=== PATIENT | male | born 1930 | race Caucasian/White ===

== ENCOUNTER 2018-04-07 12:18 | Observation (INO) ==
[2018-04-07] MEDS ORDERED: 0.9 % Sodium Chloride 1,000 ML IVC ONE (13:28)
--- NOTE | 2018-04-07 13:31 | Emergency Department Note ---
Disposition Clinical Impression: Near syncope Disposition: Admitted As Inpatient Condition: Fair General Adult HPI - General Chief complaint: ED General Medical Stated complaint: "low blood pressure" Time Seen by Provider: 04/07/18 12:50 Source: patient Limitations: no limitations Nursing Notes Reviewed: Yes Vital Signs Reviewed: Yes - History of Present Illness HPI Narrative: 87-year-old male past history of hypertension and hyperlipidemia presents to the emergency department with concern for low blood pressure. Patient states that over the last few weeks, patient's first reported spells of standing up and getting very dizzy and having to sit down. Patient denies any loss of consciousness. Patient denies hitting his head. Patient was recently on metoprolol and losartan. His losartan was cut in half as there was concern that this before causing his symptoms. Patient stated that he is not taking any of his medications today and still had these episodes. Had a blood pressure as low as 77/41 with the symptoms. Patient states it was a cyst down and rest, they go away. Patient states that he has been drinking plenty of fluids. Pain Scale: 5 - Related Data Home Medications Medication Instructions Recorded Confirmed Atorvastatin [Lipitor] 40 mg PO HS 04/07/18 04/07/18 Glimepiride [Amaryl] 4 mg PO DAILY 04/07/18 04/07/18 Losartan Potassium [Cozaar] 50 mg PO DAILY 04/07/18 04/07/18 Metoprolol Succinate [Toprol Xl] 50 mg PO DAILY 04/07/18 04/07/18 Oxybutynin Chloride [Ditropan Xl] 10 mg PO DAILY 04/07/18 04/07/18 Allergies Allergy/AdvReac Type Severity Reaction Status Date / Time Penicillins Allergy Rash Verified 04/07/18 14:31 All systems ED: reviewed and negative except as stated. Review of Systems: As Per HPI Constitutional: Denies: fever Cardiovascular: Denies: chest pain, palpitations Respiratory: Denies: cough, dyspnea Gastrointestinal: Denies: abdominal pain, nausea, vomiting Genitourinary: Denies: urgency, dysuria, frequency Musculoskeletal: Denies: back pain Neurological: Reports: vertigo. Denies: headache, weakness, numbness, paresthesias, confusion Endocrine: Denies: fatigue Past Medical History - Past Medical History Medical history: Reports: diabetes, hyperlipidemia, hypertension Psychiatric history: Reports: no psych history - Social History Smoking Status: Former smoker Smokeless Tobacco Status: Yes Alcohol use: Reports: rarely Drug use: Reports: none Physical Exam - General Limitations: no limitations General appearance: alert - Head Head exam: atraumatic, normocephalic - Eye Eye exam: Present: EOMI. Absent: scleral icterus, conjunctival injection - ENT ENT exam: normal exam, normal oropharynx - Neck Neck exam: Present: full ROM, trachea midline - Chest Chest inspection: Present: normal inspection, symmetric chest wall rise - Respiratory Respiratory exam: Present: normal lung sounds bilaterally. Absent: respiratory distress - Cardiovascular Cardiovascular exam: Present: regular rate, normal rhythm, normal heart sounds - Abdominal Exam Abdominal exam: Present: soft, Non-Tender. Absent: distention, guarding, rebound, rigidity Course Vital Signs Temperature 98.2 F 04/07/18 12:25 Pulse Rate 74 04/07/18 12:25 Respiratory Rate 18 04/07/18 12:25 Blood Pressure 113/70 04/07/18 12:25 O2 Sat by Pulse Oximetry 94 04/07/18 12:25 Temperature 98.8 F 04/08/18 06:31 Pulse Rate 78 04/08/18 06:31 Respiratory Rate 15 04/08/18 06:31 Blood Pressure 128/76 04/08/18 06:31 O2 Sat by Pulse Oximetry 93 04/08/18 06:31 Oxygen Delivery Oxygen Delivery Room Air Medical Decision Making - [facility] Narrative Medical decision making narrative: 87-year-old male presents emergency department with concern for having episodes of what sounds like orthostatic hypotension. Is concerned however, it just started abruptly a few weeks ago and patient is an 87-year-old male. Medication reduction has been attempted by primary care, with no resolution of symptoms. Chest x-ray did not reveal any evidence of abnormality. Head CT revealed chronic microvascular ischemic changes. Labs were all within normal limits. Patient was given a liter fluid here in the emergency department. This did brace his systolic blood pressure to the 140s. He was not hypotensive here. EKG revealed left ventricular hypertrophy, but no signs of arrhythmia, Yuimv-Snqzlupib-Qnznq syndrome, Brugada syndrome, hypertrophic cardiomyopathy, prolonged QT syndrome. He was not anemic. Had negative troponin. TSH is within normal limits. Renal function was normal as well. I spoke with patient at bedside regarding need for possible admission for further workup for TIA. Patient agreed. Spoke with the hospitalist who agreed to accept the patient as well. Vital Signs Temperature 98.2 F 04/07/18 12:25 Pulse Rate 74 04/07/18 12:25 Respiratory Rate 18 04/07/18 12:25 Blood Pressure 113/70 04/07/18 12:25 O2 Sat by Pulse Oximetry 94 04/07/18 12:25 Temperature 98.8 F 04/08/18 06:31 Pulse Rate 78 04/08/18 06:31 Respiratory Rate 15 04/08/18 06:31 Blood Pressure 128/76 04/08/18 06:31 O2 Sat by Pulse Oximetry 93 04/08/18 06:31 Oxygen Delivery Oxygen Delivery Room Air Chest X-Ray 04/07/18 13:28 IMPRESSION: Bibasilar hypoaeration. Otherwise, unremarkable appearing chest D/ / Lv Peralta MD / Lv Peralta MD Interpreting Provider: Lv Peralta MD Head CT 04/07/18 13:28 IMPRESSION: No acute intracranial abnormality. Generalized age-appropriate atrophy with periventricular and deep white matter patchy areas of low attenuation suggestive of chronic microvascular ischemic change. D/ / Brenden Lee MD / Brenden Lee MD Interpreting Provider: Brenden Lee MD - Lab Data Result diagrams: 04/07/18 13:28 04/07/18 13:28 Lab Results 04/07/18 04/07/18 04/07/18 Range/Units 13:28 13:28 14:06 WBC 6.4 (4.3-11.1) K/mcL RBC 4.60 (4.19-5.50) M/mcL Hgb 14.4 (12.9-16.9) g/dL Hct 42.1 (37.5-50.1) % MCV 91.5 (83.0-100.0) fL MCH 31.3 (28.0-33.3) pg MCHC 34.2 (31.6-35.5) g/dL RDW 13.5 (11.5-14.5) % Plt Count 179 (140-400) K/mcL MPV 11.3 (9.4-12.4) fL Immature Gran % 0.3 (0-4) % Seg Neutrophils % 63.1 % Lymphocytes % 21.1 % Monocytes % 11.6 % Eosinophils % 3.6 % Basophils % 0.3 % Neutrophils # 4.1 (1.6-8.9) K/mcL Lymphocytes # 1.4 (0.6-4.6) K/mcL Monocytes # 0.8 (0.0-1.3) K/mcL Eosinophils # 0.2 (0.0-0.6) K/mcL Basophils # 0.0 (0.0-0.2) K/mcL Sodium 137 (136-145) mEq/L Potassium 4.1 (3.5-5.1) mEq/L Chloride 104 (98-107) mEq/L Carbon Dioxide 27 (23-29) mEq/L BUN 18 (8-23) mg/dL Creatinine 0.89 (0.70-1.30) mg/dL Est GFR ( Amer) > 60 (> 60) Est GFR (Non-Af Amer) > 60 (> 60) BUN/Creatinine Ratio 20 (6-26) Glucose 118 H (70-105) mg/dL POC Glucose 147 H (70-99) mg/dL Calculated Osmolality 287 (280-300) Calcium 9.0 (8.6-10.3) mg/dL Troponin I < 0.03 (< 0.04) ng/mL TSH 2.737 (0.340-5.600) mcIU/mL - EKG Data EKG #1 EKG attestation: Yes I reviewed and interpreted this EKG. EKG results narrative: 14:00 Ventricular rate 61 bpm, [place] interval 170 ms, QRS duration 76. His, QT 400 ms, QTC 404 ms, left axis deviation. Sinus rhythm with a ventricular rate of 61 bpm. No evidence of any ischemic ST changes on this electrocardiogram. No previous study to compare this to.
[2018-04-07 14:13] LABS: Basophils % 0.3 %; Eosinophils # 0.2 K/mcL (0.0-0.6); Eosinophils % 3.6 %; Hematocrit 42.1 % (37.5-50.1); Hemoglobin 14.4 g/dL (12.9-16.9); Immature Granulocytes % 0.3 % (0-4); Lymphocytes # 1.4 K/mcL (0.6-4.6); Lymphocytes % 21.1 %; Mean Corpuscular HGB Conc 34.2 g/dL (31.6-35.5); Mean Corpuscular Hemoglobin 31.3 pg (28.0-33.3); Mean Corpuscular Volume 91.5 fL (83.0-100.0); Mean Platelet Volume 11.3 fL (9.4-12.4); Monocytes # 0.8 K/mcL (0.0-1.3); Monocytes % 11.6 %; Neutrophils # 4.1 K/mcL (1.6-8.9); Platelet Count 179 K/mcL (140-400); Red Cell Distribution Width 13.5 % (11.5-14.5); Segmented Neutrophils % 63.1 %
[2018-04-07 14:36] LABS: BUN/Creatinine Ratio 20 (6-26); Blood Urea Nitrogen 18 mg/dL (8-23); Carbon Dioxide 27 mEq/L (23-29); Chloride 104 mEq/L (98-107); Glucose 118 mg/dL (70-105); Osmolality,Calculated 287 (280-300); Potassium 4.1 mEq/L (3.5-5.1); Sodium 137 mEq/L (136-145); Troponin I < 0.03 ng/mL (< 0.04); eGFR For African Americans > 60 (> 60); eGFR For Non-African Americans > 60 (> 60)
--- NOTE | 2018-04-07 14:42 | Emergency Department Note ---
Disposition Clinical Impression: Near syncope Disposition: Admitted As Inpatient Referrals: Hugo Crystal DO [Primary Care Provider] - Forms: ED Satisfaction Letter, Work/School Release Time of Disposition: 14:42 General Adult HPI - General Chief complaint: ED General Medical Stated complaint: "low blood pressure" Time Seen by Provider: 04/07/18 12:50 Source: patient Limitations: no limitations - History of Present Illness Pain Scale: 5 - Related Data Home Medications Medication Instructions Recorded Confirmed Atorvastatin [Lipitor] 40 mg PO HS 04/07/18 04/07/18 Glimepiride [Amaryl] 4 mg PO DAILY 04/07/18 04/07/18 Losartan Potassium [Cozaar] 50 mg PO DAILY 04/07/18 04/07/18 Metoprolol Succinate [Toprol Xl] 50 mg PO DAILY 04/07/18 04/07/18 Oxybutynin Chloride [Ditropan Xl] 10 mg PO DAILY 04/07/18 04/07/18 Allergies Allergy/AdvReac Type Severity Reaction Status Date / Time Penicillins Allergy Rash Verified 04/07/18 14:31 Past Medical History - Past Medical History Medical history: Reports: diabetes, hyperlipidemia, hypertension Psychiatric history: Reports: no psych history - Social History Smoking Status: Former smoker Smokeless Tobacco Status: Yes Alcohol use: Reports: rarely Drug use: Reports: none Physical Exam - General Limitations: no limitations General appearance: alert Course Vital Signs Temperature 98.2 F 04/07/18 12:25 Pulse Rate 74 04/07/18 12:25 Respiratory Rate 18 04/07/18 12:25 Blood Pressure 113/70 04/07/18 12:25 O2 Sat by Pulse Oximetry 94 04/07/18 12:25 Temperature 98.2 F 04/07/18 12:25 Pulse Rate 66 04/07/18 14:06 Respiratory Rate 12 04/07/18 14:06 Blood Pressure 136/70 04/07/18 14:06 O2 Sat by Pulse Oximetry 96 04/07/18 14:06 Oxygen Delivery Oxygen Delivery Room Air Medical Decision Making - Lab Data Result diagrams: 04/07/18 13:28 04/07/18 13:28 Lab Results 04/07/18 04/07/18 Range/Units 13:28 13:28 WBC 6.4 (4.3-11.1) K/mcL RBC 4.60 (4.19-5.50) M/mcL Hgb 14.4 (12.9-16.9) g/dL Hct 42.1 (37.5-50.1) % MCV 91.5 (83.0-100.0) fL MCH 31.3 (28.0-33.3) pg MCHC 34.2 (31.6-35.5) g/dL RDW 13.5 (11.5-14.5) % Plt Count 179 (140-400) K/mcL MPV 11.3 (9.4-12.4) fL Immature Gran % 0.3 (0-4) % Seg Neutrophils % 63.1 % Lymphocytes % 21.1 % Monocytes % 11.6 % Eosinophils % 3.6 % Basophils % 0.3 % Neutrophils # 4.1 (1.6-8.9) K/mcL Lymphocytes # 1.4 (0.6-4.6) K/mcL Monocytes # 0.8 (0.0-1.3) K/mcL Eosinophils # 0.2 (0.0-0.6) K/mcL Basophils # 0.0 (0.0-0.2) K/mcL Sodium 137 (136-145) mEq/L Potassium 4.1 (3.5-5.1) mEq/L Chloride 104 (98-107) mEq/L Carbon Dioxide 27 (23-29) mEq/L BUN 18 (8-23) mg/dL Creatinine 0.89 (0.70-1.30) mg/dL Est GFR ( Amer) > 60 (> 60) Est GFR (Non-Af Amer) > 60 (> 60) BUN/Creatinine Ratio 20 (6-26) Glucose 118 H (70-105) mg/dL Calculated Osmolality 287 (280-300) Calcium 9.0 (8.6-10.3) mg/dL Troponin I < 0.03 (< 0.04) ng/mL Attestation Statement - Attestation Attestation: I examined this patient and my medical decision-making was reviewed with the Resident Physician. I agree with the documented findings, disposition and treatment plan as described except to the extent set forth below. 87 year old male presents to the ED with complaints of hypotnesion with change of position and states that he has had near syncopal episode secondary to it and states that he is on hypertensive medicationa long he hasnt been taking it for the past few days secondary to the near syncopal episodes and he has develoepd a headache in the process which has now resolved. We will admit to medicine for syncope
[2018-04-07 14:50] LABS: Thyroid Stimulating Hormone 2.737 mcIU/mL (0.340-5.600)
[2018-04-07] MEDS ORDERED: Aspirin 81 MG TAB.CHEW PO ONE (15:50)
[2018-04-07] MEDS ORDERED: Naloxone 0.4 MG/ML INJ IVP PRN (17:26)
--- NOTE | 2018-04-07 17:30 | Internal Med History&Physical ---
Date of Encounter: 04/07/18 Time of Encounter: 17:34 Internal Medicine - H&P: HPI Chief complaint: Low blood pressure History of present illness: Mr. Haider is a 87 year old male for history of hypertension, hyperlipidemia, diabetes, CAD status post at more than 20 years ago, rheumatic fever as child who presents with symptomatically orthostasis. Patient has a history of low blood pressure previously on losartan and metoprolol. Due to his low blood pressure he has been holding losartan for the last 3-4 days and had continue on metoprolol. Patient has a blood pressure cuff at home and checks his blood pressure all the time at home. This morning at approximately 11 PM after blood pressure medicine he recorded a blood pressure of 70 systolic. When he woke up in the morning and was in the 120s to 100 systolic. This low blood pressure was associated with dizziness on standing associated with blurry vision and lower extremity weakness that is bilateral and symmetrical. He describes that his legs felt like spaghetti. It appears that he has been having such symptoms on and off for the last few months and had been visiting PCP Dr. Crystal at [place]. EKG personally reviewed with rate 61, normal sinus rhythm, low voltage CT/CT head/brain wo con IMPRESSION: No acute intracranial abnormality. Generalized age-appropriate atrophy with periventricular and deep white matter patchy areas of low attenuation suggestive of chronic microvascular ischemic change. XR/XR chest 1V portable IMPRESSION: Bibasilar hypoaeration. Otherwise, unremarkable appearing chest Past Med Surg Social Fam HX - Past Medical History Medical history: diabetes, hyperlipidemia, hypertension Psychiatric history: no psych history - Past Surgical History Additional surgical history: stent 30 years ago - Social History Smoking Status: Former smoker Smokeless Tobacco Status: Yes Alcohol use: rarely Drug use: none Internal Medicine - H&P: Meds Atorvastatin [Lipitor] 40 mg PO HS 04/07/18 [History] Glimepiride [Amaryl] 4 mg PO DAILY 04/07/18 [History] Losartan Potassium [Cozaar] 50 mg PO DAILY 04/07/18 [History] Metoprolol Succinate [Toprol Xl] 50 mg PO DAILY 04/07/18 [History] Oxybutynin Chloride [Ditropan Xl] 10 mg PO DAILY 04/07/18 [History] 3 Allergy/AdvReac Type Severity Reaction Status Date / Time Penicillins Allergy Rash Verified 04/07/18 14:31 All Systems PM: A 10-system review of systems was performed and is negative for pertinent findings except as documented above in the HPI. Review of systems: ROS 14 point review of systems reviewed as best as possible given presentation. Pertinent positive or negative as per HPI or otherwise reviewed as negative - Constitutional Vitals: Temp Pulse Resp BP Pulse Ox 98.2 F 65 12 117/71 96 04/07/18 12:25 04/07/18 14:57 04/07/18 14:06 04/07/18 14:57 04/07/18 14:57 Exam: General - AAO x 3 Psych - Appropriate affect/speech. No agitation Eyes - JOHN. Eye lids intact. No scleral icterus Neuro - No gross peripheral or central neuro deficits on inspection Heart - Sinus. RRR. S1 and S2 present. No added HS/murmurs appreciated. No elevated JVD appreciated. Lung - Adequate air entry b/l, No crackles/wheezes appreciated GI - Soft, non-tender. No hepatosplenomegaly/ascites. BS+ - No CVA/suprapubic tenderness or palpable bladder distension Skin - Intact. No rash/petechiae/ecchymosis. Warm extremities Internal Med - H&P Results - Labs CBC & Chem 7: 04/07/18 13:28 04/07/18 13:28 - Assessment and plan (1) Orthostasis Current Visit: Yes Status: Acute Assessment and plan: likely orthostasis related to low BP from BP med - hold losartan and metoprolol IVF check orthostats check TTE given hx of rheumatic fever as child per hx, doubt this is acute TIA. No focal examination of focal findings on history (2) HTN (hypertension) Current Visit: Yes Status: Acute Assessment and plan: hold BP med due to low BP above Qualifiers: Hypertension type: essential hypertension Qualified Code(s): I10 - Essential (primary) hypertension (3) CAD (coronary artery disease), [place] coronary artery Current Visit: Yes Status: Acute Assessment and plan: s/p stent approx 20 years ago. No recent event reported Qualifiers: [place] vs. transplanted heart: [place] heart Associated angina: without angina Qualified Code(s): I25.10 - Atherosclerotic heart disease of [place] coronary artery without angina pectoris - Time Spent With Patient Total time spent is greater than 50% in coordination of care (as documented) at patient's floor/unit and/or counseling patient:
[2018-04-07] MEDS ORDERED: *HR* Dextrose 50 % in Water (Syg) 50 ML SYRINGE IVP PRN (23:25)
[2018-04-07] MEDS ORDERED: Dextrose Gel 15 GM/37.5 ML TUBE PO PRN ×2 (23:25)
[2018-04-07] MEDS ORDERED: D5% in Water 1,000 ML IVC PRN (23:25)
[2018-04-08] MEDS: Insulin LISPRO 300 UNITS/3 ML VIAL SQ SCH ×2 (07:07→12:09)
[2018-04-08] MEDS ORDERED: *HR* Glimepiride 4 MG TABLET PO SCH (09:00)
[2018-04-08 11:06] VITALS: BP 120/69
--- NOTE | 2018-04-08 13:15 | Discharge Summary ---
<Silvana Arias - Last Filed: 04/08/18 13:12> Date of Encounter: 04/08/18 Time of Encounter: 13:12 - Discharge Diagnosis (1) Orthostasis Priority: Primary Status: Acute (2) CAD (coronary artery disease), [place] coronary artery Priority: Secondary Status: Chronic Qualifiers: [place] vs. transplanted heart: [place] heart Associated angina: without angina Qualified Code(s): I25.10 - Atherosclerotic heart disease of [place] coronary artery without angina pectoris (3) HTN (hypertension) Priority: Secondary Status: Chronic Qualifiers: Hypertension type: essential hypertension Qualified Code(s): I10 - Essential (primary) hypertension Hospital course: Mr. Haider is a 87 year old male with significant past medical history of hypertension, hyperlipidemia, diabetes and CAD presented and admitted for symptomatic orthostasis. Patient states for the past 3-4 days he had low blood pressure at home with systolic in the 70s. Currently taking losartan and metoprolol. Patient half his dose losartan but continued his metoprolol 50 mg. Patient states the symptoms became worse when standing quickly. Patient's blood pressure medicine was held here and blood pressure was stable. Patient denies symptoms. Orthostatics negative. We will discontinue the patient's losartan and half the dose of metoprolol 25 mg per day. Patient states he would like to discontinue all blood pressure medications. We explained to him that if his blood pressure is greater than 150 systolic to take 25 mg of metoprolol. Patient agrees. - Time Spent with Patient Total time spent providing and/or coordinating discharge services: - Discharge Medications Prescriptions: Metoprolol [Lopressor] 25 mg PO DAILY #30 tablet Home Medications: Atorvastatin [Lipitor] 40 mg PO HS 04/07/18 [History] Glimepiride [Amaryl] 4 mg PO DAILY 04/07/18 [History] Oxybutynin Chloride [Ditropan Xl] 10 mg PO DAILY 04/07/18 [History] Metoprolol [Lopressor] 25 mg PO DAILY #30 tablet 04/08/18 [Rx] Allergies/Adverse Reactions: 3 Allergy/AdvReac Type Severity Reaction Status Date / Time Penicillins Allergy Rash Verified 04/07/18 14:31 Date of admission: 04/07/18 16:50 Primary care physician: Hugo Crystal Discharging clinician: Silvana Arias Anticipated date of discharge: 04/08/18 - Constitutional Vitals: Temp Pulse Resp BP Pulse Ox 98.2 F 73 16 120/69 94 04/08/18 11:03 04/08/18 11:03 04/08/18 11:03 04/08/18 11:03 04/08/18 11:03 General appearance: Present: A&O X 3, no acute distress, answers questions appropriately - Head Head exam: Present: atraumatic, normocephalic - Respiratory Respiratory exam: Present: CTAB. Absent: accessory muscle use, rales, rhonchi, wheezes - Cardiovascular Cardiovascular exam: Present: RRR, +S1, +S2, systolic murmur. Absent: gallop, rubs - GI/Abdominal GI/Abdominal exam: Present: normal bowel sounds, soft, no peritoneal signs. Absent: distended, tenderness - Extremities Exam Extremities exam: Present: warm, radial pulses palpable and symmetrical. Absent : pedal edema - Neurological Exam Neurological exam: Present: oriented X3, no focal deficits - Skin Skin exam: Present: dry, intact - Patient Status Disposition: Home, Self-Care Condition: Good Functional capacity at discharge: independent ambulation Overall status at discharge: patient is back to baseline - Discharge Instructions Follow Up With: Hugo Crystal DO [Primary Care Provider] - Additional Instructions: Please discontinue your losartan. Please reduce your metoprolol to 25 mg daily as needed if your systolic blood pressure (top number) is greater than 150. Please follow-up with your primary care physician within a week. Please return for any new or worsening symptoms. - Diet and Activity Activity: increase activity as tolerated Diet: advance to your usual diet - VTE Documentation of Mechanical Device: Graduated compression elastic hosiery <Juan Hawthorne - Last Filed: 04/08/18 13:44> Date of Encounter: 04/08/18 - Discharge Diagnosis (1) Orthostasis Status: Acute (2) CAD (coronary artery disease), [place] coronary artery Status: Chronic Qualifiers: [place] vs. transplanted heart: [place] heart Associated angina: without angina Qualified Code(s): I25.10 - Atherosclerotic heart disease of [place] coronary artery without angina pectoris (3) HTN (hypertension) Status: Chronic Qualifiers: Hypertension type: essential hypertension Qualified Code(s): I10 - Essential (primary) hypertension Hospital course: Mr. Haider is a 87 year old male - Time Spent with Patient Total time spent providing and/or coordinating discharge services: Date of admission: 04/07/18 16:50 Primary care physician: Hugo Crystal - Constitutional Vitals: Temp Pulse Resp BP Pulse Ox 98.2 F 73 16 120/69 94 04/08/18 11:03 04/08/18 11:03 04/08/18 11:03 04/08/18 11:03 04/08/18 11:03 - Attending Attestation I examined this patient and my medical decision-making was reviewed with the Resident Physician Dr. Arias. I agree with the documented findings, disposition and treatment plan as described except to the extent set forth below. Mr. Haider is a 87 year old male with significant past medical history of hypertension, hyperlipidemia, diabetes and CAD presented and admitted for symptomatic orthostasis. Pt has been having low BP for one week, stopped taking his medication from last 3 days. Denied any CP. He was given IV fluids. Now he feels lot better. His BP also improved in 140's now. Recommend to continue holding BP meds and take Metoprolol xl 25mg instead of 50mg if BP stays above 140-150 consistently. Heart: S1S2+ RRR No murmurs Gen: A, A, O x3
--- NOTE | 2018-04-08 19:22 | Electrocardiograph Report ---
[place] [id number] Test Date: 2018-04-07 Pat Name: Elder Haider Department: 103 Room: 3A Gender: M [employer] Operator: BLAKE : 1930 Requested By: Suleman Brito Order Number: [id number] Reading MD: Stewart Gary Measurements Intervals [place] Rate: 61 P: 10 [place]: 178 QRS: -16 QRSD: 76 T: 11 QT: 400 QTc: 404 Interpretive Statements SINUS RHYTHM LOW QRS VOLTAGE IN PRECORDIAL LEADS MINIMAL VOLTAGE CRITERIA FOR LVH, CONSIDER NORMAL VARIANT Electronically Signed On 04-08-2018 19:21:28 EDT by Stewart Gary
[2018-04-08] MEDS ORDERED: Insulin LISPRO 300 UNITS/3 ML VIAL SQ SCH (21:00)
== END 2018-04-08 16:00 | disposition home or self-care (01) ==
LOC: 3ANU 12:18 → EMEROO 12:18 → 3ANU 17:56
PROVIDERS: ADMIT Family Medicine; ATTEND Family Medicine